=== PATIENT | male | born 1995 | race Caucasian/White ===

== ENCOUNTER 2017-07-01 14:40 | Emergency (ER) | payer OTHER ==
[2017-07-01 14:48] VITALS: BP 142/86; PULSE 92; TEMP 98; BMI 35.2
[2017-07-01] MEDS ORDERED: KETOROLAC TROMETHAMINE 60 MG/2 ML VIAL IM ONE (16:23)
--- NOTE | 2017-07-01 16:25 | PDOC ---
History of Present Illness - History of Present Illness Initial Comments: 07/01/17 16:58 The patient is a 21 year old male with a history of back pain, high cholesterol , presents to the emergency department with a complaint of neck and lower back pain since yesterday. Patient had fallen down stairs at home. He states he fell down about [address]. He slide forward while leaning back. Denies loss of consciousness, nausea or vomiting. Patient was previously evaluated at [facility] where he had a CT of his said. Patient reports the report was negative. He reports the pain is worse by the upper lumbar lower thoracic region and spans across the back. Patient also has pain in his left sided neck. Both his back pain and neck pains are provoked with movement. Pain does not radiate into the buttock or legs or arms. He has used Naprosyn with some relief of symptoms. Patient reports some lightheadedness. Denies tinnitus. Denies midline spinal tenderness or midline neck or lumbar tenderness or any saddle anesthesia. Denies urinary or bowel incontinence. Patient denies headache, change in vision or level of alertness. <Ian Amaro - Last Filed: 07/01/17 18:14> <Tatiana Del Toro - Last Filed: 07/01/17 19:09> - General Chief Complaint: Pain Stated Complaint: PAIN Time Seen by Provider: 07/01/17 15:59 Past History <Ian Amaro - Last Filed: 07/01/17 18:14> - Past Medical History Hypercholesterolemia: Yes - Surgical History Appendectomy: Yes - Psycho/Social/Smoking Cessation Hx Suicidal Ideation: No Smoking History: Never smoked Information on smoking cessation initiated: No <Tatiana Del Toro - Last Filed: 07/01/17 19:09> - Past Medical History Allergies/Adverse Reactions: Allergies Allergy/AdvReac Type Severity Reaction Status Date / Time No Known Allergies Allergy Verified 07/01/17 14:48 Home Medications: Ambulatory Orders Oxycodone HCl/Acetaminophen [Percocet 5-325 mg Tablet] 1 tab PO Q6H PRN #9 tablet MDD 3 07/01/17 Review of Systems - Review of Systems Able to Perform ROS?: Yes Constitutional: No: Symptoms Reported HEENTM: No: Symptoms Reported Respiratory: No: Symptoms reported Cardiac (ROS): No: Symptoms Reported ABD/GI: No: Symptoms Reported : No: Symptoms Reported Musculoskeletal: Yes: Symptoms Reported, See HPI, Back Pain (upper lumbar and lower thoracic paraspinal region. ), Neck Pain (left sided ) Neurological: No: Symptoms reported All Other Systems: Reviewed and Negative <Ian Amaro - Last Filed: 07/01/17 18:14> *Physical Exam - Vital Signs Last Vital Signs Temp Pulse Resp BP Pulse Ox 98 F 92 H 18 142/86 98 07/01/17 14:43 07/01/17 14:43 07/01/17 14:43 07/01/17 14:43 07/01/17 14:43 - Physical Exam General Appearance: Yes: Appropriately Dressed. No: Apparent Distress HEENT: positive: EOMI, MARGA, Normal ENT Inspection Neck: positive: Tender (left sided ), Supple. negative: Trachea midline, Rigidity, Tender midline Respiratory/Chest: positive: Lungs Clear, Normal Breath Sounds. negative: Respiratory Distress Cardiovascular: positive: Regular Rhythm, Regular Rate Gastrointestinal/Abdominal: positive: Soft. negative: Tender Musculoskeletal: positive: Other (lower thoracic upper lumbar paraspinal tenderness). negative: Vertebral Tenderness Extremity: positive: Normal Inspection Integumentary: positive: Normal Color, Dry, Warm Neurologic: positive: supervisor microfilm duplicating unit II-XII NML intact, Fully Oriented, Alert, Normal Mood/ Affect, Normal Response, Motor Strength 5/5 <Ian Amaro - Last Filed: 07/01/17 18:14> - Vital Signs Last Vital Signs Temp Pulse Resp BP Pulse Ox 98 F 92 H 18 142/86 98 07/01/17 14:43 07/01/17 14:43 07/01/17 14:43 07/01/17 14:43 07/01/17 14:43 - Physical Exam Deep Tendon Reflexes: Ankle (L): 4+, Ankle (R): 4+, Knee (L): 4+, Knee (R): 4+ <Tatiana Del Toro - Last Filed: 07/01/17 19:09> ED Treatment Course - Medications Given in the ED: ED Medications Discontinued Medications Generic Name Dose Route Start Last Admin Trade Name Freq PRN Reason Stop Dose Admin Ketorolac Tromethamine 60 mg 07/01/17 16:23 07/01/17 16:29 Toradol Injection - IM 07/01/17 16:24 60 mg NOW ONE Administration <Ian Amaro - Last Filed: 07/01/17 18:14> - RADIOLOGY Radiology Studies Ordered: Category Date Time Status SHOULDER-LEFT [RAD] Stat Radiology 07/01/17 16:24 Ordered <Tatiana Del Toro - Last Filed: 07/01/17 19:09> Medical Decision Making - Medical Decision Making 07/01/17 17:35 The patient is a 21 year old male with a history of back pain, high cholesterol , presents to the emergency department with a complaint of neck and lower back pain since yesterday. Patient had fallen down stairs at home. He states he fell down about [address]. He slide forward while leaning back. Denies loss of consciousness, nausea or vomiting. Patient was previously evaluated at [facility] where he had a CT of his said. Patient reports the report was negative. He reports the pain is worse by the upper lumbar lower thoracic region and spans across the back. Patient also has pain in his left sided neck. Both his back pain and neck pains are provoked with movement. Pain does not radiate into the buttock or legs or arms. He has used Naprosyn with some relief of symptoms. Patient reports some lightheadedness. Denies tinnitus. Denies midline spinal tenderness or midline neck or lumbar tenderness or any saddle anesthesia. Denies urinary or bowel incontinence. Patient denies headache, change in vision or level of alertness. FALL R/O LEFT SHOULDER JOSE ABNORMALITY R/O THORACIC, LUMBAR/SACRAL SPINE JOSE ABNORMALITY left lateral neck/shoulder pain MS pain thoracic/upper lumbar pain PLAN: TORADOL 60 MG IM XRAY LEFT SHOULDER negative gross abnormality XRAY THORACIC SPINE negative gross abnormality XRAY LUMBAR/SACRAL SPINE reversal of normal lordotic curve percocet 5mg/325 mg po every 8 hr prn severe pain # 9 tabs FOLLOW UP WITH ORTHOPEDIST SOON POSSIBLE 07/01/17 18:31 07/01/17 18:40 07/01/17 19:08 <Tatiana Del Toro - Last Filed: 07/01/17 19:09> *DC/Admit/Observation/Transfer - Attestations Scribe Attestion: 07/01/17 17:00 Documentation prepared by Ian Amaro, acting as medical secretary receptionist for Tatiana Del Toro NP <Ian Amaro - Last Filed: 07/01/17 18:14> - Attestations Scribe Attestion: 07/01/17 19:08 Clinical scribe Ian Santoyo prepared portion of this medical chart under my direction, chart was reviewed for accuracy and was deemed to be accurate <Katey,Kim - Last Filed: 07/01/17 19:09> Diagnosis at time of Disposition: Fall (on) (from) other stairs and steps, initial encounter Thoracic back pain Qualifiers: Chronicity: acute Back pain laterality: bilateral Qualified Code(s): M54.6 - Pain in thoracic spine Lumbar back pain Qualifiers: Chronicity: acute Back pain laterality: bilateral Sciatica presence: without sciatica Qualified Code(s): M54.5 - Low back pain Neck muscle strain Qualifiers: Encounter type: initial encounter Qualified Code(s): S16.1XXA - Strain of muscle, fascia and tendon at neck level, initial encounter - Discharge Dispostion Disposition: HOME Condition at time of disposition: Stable - Prescriptions Prescriptions: Oxycodone HCl/Acetaminophen [Percocet 5-325 mg Tablet] 1 tab PO Q6H PRN #9 tablet MDD 3 PRN Reason: Severe Pain - Referrals Referrals: Aries Veliz MD [Staff Physician] - Jose Metzger MD [Staff Physician] - - Patient Instructions Additional Instructions: Avoid any strenuous activities or exercise Follow-up with orthopedist for further evaluation Return to emergency room if symptoms worsen increased pain or numbness of legs or arms Patient voiced understanding of discharge instructions and all questions were answered - Post Discharge Activity Work/School Note: Back to Work
[2017-07-01] MEDS ORDERED: KETOROLAC TROMETHAMINE 60 MG/2 ML VIAL ONE (16:26)
== END 2017-07-01 18:46 | disposition home or self-care (01) ==
LOC: JERFT 14:40
DX: S16.1XXA Strain of muscle, fascia and tendon at neck level, initial encounter (principal); W10.8XXA Fall (on) (from) other stairs and steps, initial encounter; Y93.89 Activity, other specified; Y92.038 Other place in apartment as the place of occurrence of the external cause; Y99.8 Other external cause status
CPT/HCPCS: 72070-TC; 72100-TC; 73030-TC-LT; 99281-25

== ENCOUNTER 2017-10-22 20:08 | Emergency (ER) | payer SELFPAY ==
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
[2017-10-22 20:16] VITALS: BP 150/76; PULSE 100; TEMP 98; BMI 37.3
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
[2017-10-22] MEDS ORDERED: KETOROLAC TROMETHAMINE 30 MG/1 ML VIAL IM ONE (21:36)
[2017-10-22] MEDS ORDERED: KETOROLAC TROMETHAMINE 30 MG/1 ML VIAL ONE (21:44)
[2017-10-22 21:57] LABS: URINE APPEARANCE SLCLOUDY; URINE BILIRUBIN NEGATIVE (NEGATIVE); URINE BLOOD NEGATIVE (NEGATIVE); URINE COLOR LTYELLOW; URINE GLUCOSE (UA) 2+ (NEGATIVE); URINE KETONE NEGATIVE (NEGATIVE); URINE LEUK ESTERASE TRACE (NEGATIVE); URINE NITRITE NEGATIVE (NEGATIVE); URINE PROTEIN NEGATIVE (NEGATIVE); URINE UROBILINOGEN NEGATIVE mg/dL (0.2-1.0)
[2017-10-22 23:23] LABS: URINE BACTERIA RARE /hpf (NONE SEEN); URINE MUCUS RARE; URINE RBC 1 /hpf (0-3); URINE WBC 12 /hpf (3-5)
[2017-10-23 10:06] LABS: URINE LEUK ESTERASE TRACE (NEGATIVE)
== END 2017-10-22 22:25 | disposition home or self-care (01) ==
LOC: JERFT 20:08
PROC: 3E0233Z Introduction of Anti-inflammatory into Muscle, Percutaneous Approach (ICD-10-PCS; principal; 2017-10-22)
DX: M79.1 Myalgia (principal); V43.52XA Car driver injured in collision with other type car in traffic accident, initial encounter; Y93.89 Activity, other specified; Y92.410 Unspecified street and highway as the place of occurrence of the external cause
CPT/HCPCS: 81003; 81015; 99281-25

== ENCOUNTER 2023-01-24 11:45 | Observation (INO) | payer OTHER ==
[2023-01-24] MEDS ORDERED: KETOROLAC TROMETHAMINE 15 MG/ML VIAL IVPUSH ONE (13:36)
[2023-01-24] MEDS ORDERED: SODIUM CHLORIDE 0.9% 500 ML INFUS.BAG IV ONE (13:36)
[2023-01-24] MEDS ORDERED: ONDANSETRON 4 MG/2 ML VIAL IVPUSH ONE (13:37)
[2023-01-24] MEDS ORDERED: KETOROLAC TROMETHAMINE 30 MG/1 ML VIAL ONE (13:55)
[2023-01-24] MEDS ORDERED: ONDANSETRON 4 MG/2 ML VIAL ONE (13:55)
[2023-01-24 16:43] LABS: BASO % 0.3 % (0-2.0); EOS % 0.7 % (0-4.5); HEMATOCRIT 51.2 % (35.4-49); MCH 28.3 pg (25.7-33.7); MCHC 33.1 g/dl (32.0-35.9); MEAN CELL VOLUME 85.5 fl (80-96); MEAN PLT VOLUME 8.7 fl (7.5-11.1); MONO % 4.2 % (3.8-10.2); NEUT % 86.8 % (42.8-82.8); PLATELET COUNT 315 10^3/uL (134-434); RBC 5.99 M/mm3 (4.00-5.60); RDW 14.7 % (11.9-15.9); URINE APPEARANCE CLEAR; URINE BILIRUBIN NEGATIVE (NEGATIVE); URINE COLOR YELLOW; URINE GLUCOSE (UA) NEGATIVE (NEGATIVE); URINE KETONE TRACE (NEGATIVE); URINE LEUK ESTERASE NEGATIVE (NEGATIVE); URINE NITRITE NEGATIVE (NEGATIVE); URINE PROTEIN TRACE (NEGATIVE); URINE UROBILINOGEN 0.2 mg/dL (0.2-1.0); WHITE BLOOD COUNT 11.3 K/mm3 (4.0-10.0)
[2023-01-24 17:24] LABS: CALCIUM 9.3 mg/dL (8.5-10.1)
[2023-01-24 17:25] LABS: ALBUMIN 4.1 g/dl (3.4-5.0); BLOOD UREA NITROGEN 14.2 mg/dL (7-18)
[2023-01-24 17:28] LABS: CREATININE 0.9 mg/dL (0.55-1.3)
[2023-01-24 17:29] LABS: BILIRUBIN,TOTAL 0.9 mg/dL (0.2-1); TOT PROT 8.1 g/dl (6.4-8.2)
[2023-01-24] MEDS ORDERED: SODIUM CHLORIDE 1,000 ML IV STA (18:12)
[2023-01-24] MEDS ORDERED: ACETAMINOPHEN 1000 MG/100 ML BAG IVPB ONE (21:39)
[2023-01-24] MEDS ORDERED: INSULIN (NOVOLOG) ASPART 100 UNITS/ML 10ML VIAL ONE (22:17)
[2023-01-24] MEDS: INSULIN SLIDING SCALE (NOVOLOG) 1 VIAL SQ SCH (22:31)
[2023-01-24] MEDS ORDERED: ONDANSETRON 4 MG/2 ML VIAL IVPUSH PRN (22:58)
[2023-01-25] MEDS: SODIUM CHLORIDE 1,000 ML IV SCH ×3 (00:30→12:37)
[2023-01-25 03:06] VITALS: BMI 26.5
[2023-01-25] MEDS: INSULIN SLIDING SCALE (NOVOLOG) 1 VIAL SQ SCH ×3 (06:50→17:06)
[2023-01-25 09:13] LABS: HEMATOCRIT 45.1 % (35.4-49); HEMOGLOBIN 15.3 GM/dL (11.7-16.9); MCH 28.9 pg (25.7-33.7); MCHC 33.9 g/dl (32.0-35.9); MEAN CELL VOLUME 85.4 fl (80-96); MEAN PLT VOLUME 8.6 fl (7.5-11.1); PLATELET COUNT 280 10^3/uL (134-434); RBC 5.28 M/mm3 (4.00-5.60); RDW 14.3 % (11.9-15.9); WHITE BLOOD COUNT 3.6 K/mm3 (4.0-10.0)
[2023-01-25 09:32] LABS: CALCIUM 8.5 mg/dL (8.5-10.1)
[2023-01-25 09:33] LABS: ALBUMIN 3.3 g/dl (3.4-5.0); BLOOD UREA NITROGEN 9.2 mg/dL (7-18); MAGNESIUM 2.1 mg/dL (1.8-2.4)
[2023-01-25 09:35] LABS: CREATININE 0.8 mg/dL (0.55-1.3)
[2023-01-25 09:37] LABS: BILIRUBIN,TOTAL 1.1 mg/dL (0.2-1); TOT PROT 6.6 g/dl (6.4-8.2)
[2023-01-25] MEDS ORDERED: ENOXAPARIN NA (PORCINE) 40 MG/0.4 ML DISP.SYRIN SQ SCH (10:00)
[2023-01-25 14:51] VITALS: RESP 20
[2023-01-25 19:31] VITALS: BP 130/74; PULSE 71; TEMP 97.4
== END 2023-01-25 21:07 | disposition left against medical advice (07) ==
LOC: JER 11:45 → INTOOBSV 19:44 → JERBED 19:44 → J8W 21:20
PROVIDERS: ADMIT Internal Medicine; ATTEND Nurse Practitioner Acute Care
DX: I47.20 Ventricular tachycardia, unspecified (principal); I48.91 Unspecified atrial fibrillation; I42.9 Cardiomyopathy, unspecified; Z95.0 Presence of cardiac pacemaker; R00.2 Palpitations; R77.8 Other specified abnormalities of plasma proteins; I10 Essential (primary) hypertension; E78.5 Hyperlipidemia, unspecified; Z79.01 Long term (current) use of anticoagulants
CPT/HCPCS: 0241U-QW; 36415; 74176-TC; 80053; 81003; 82962; 83690; 83735; 84100; 85025; 85027; 87086; 93005; 93010; 99285-25; G0378

== ENCOUNTER 2024-05-01 10:53 | Emergency (ER) | payer OTHER ==
[2024-05-01 11:30] VITALS: BP 126/70; PULSE 92; RESP 18; TEMP 99.5; BMI 46.0
[2024-05-01] MEDS ORDERED: CYCLOBENZAPRINE HCL 5 MG TABLET ONE (11:49)
[2024-05-01] MEDS ORDERED: KETOROLAC TROMETHAMINE 30 MG/1 ML VIAL ONE (11:49)
[2024-05-01] MEDS ORDERED: LIDOCAINE 5% TOPICAL PATCH ONE (11:53)
[2024-05-01] MEDS: KETOROLAC TROMETHAMINE 30 MG/1 ML VIAL IM ONE (12:02)
[2024-05-01] MEDS: LIDOCAINE 5% TOPICAL PATCH TP ONE (12:02)
[2024-05-01] MEDS ORDERED: LIDOCAINE PATCH REMOVAL MC ONE (22:00)
[2024-05-02] MEDS ORDERED: CYCLOBENZAPRINE HCL 5 MG TABLET PO ONE (11:40)
== END 2024-05-01 13:39 | disposition home or self-care (01) ==
LOC: JERFT 10:53
PROC: 3E0233Z Introduction of Anti-inflammatory into Muscle, Percutaneous Approach (ICD-10-PCS; principal; 2024-05-01)
DX: M54.41 Lumbago with sciatica, right side (principal); M54.2 Cervicalgia; M54.6 Pain in thoracic spine
CPT/HCPCS: 99284-25

== ENCOUNTER 2024-06-18 03:19 | Emergency (ER) | payer OTHER ==
[2024-06-18 03:25] VITALS: BP 130/78; RESP 16; TEMP 98.6; BMI 34.9
[2024-06-18] MEDS ORDERED: ACETAMINOPHEN INJECTION 100 ML IVPB ONE (04:19)
[2024-06-18] MEDS: ACETAMINOPHEN 1000 MG/100 ML BAG IVPB ONE (04:35)
[2024-06-18 04:41] LABS: BASO % 0.9 % (0-2.0); HEMOGLOBIN 14.7 GM/dL (11.7-16.9); LYMPH % 39.7 % (8-40); MCH 28.9 pg (25.7-33.7); MCHC 34.1 g/dl (32.0-35.9); MEAN CELL VOLUME 84.7 fl (80-96); MEAN PLT VOLUME 7.9 fl (7.5-11.1); MONO % 6.8 % (3.8-10.2); NEUT % 51.6 % (42.8-82.8); PLATELET COUNT 271 10^3/uL (134-434); RBC 5.08 M/mm3 (4.00-5.60); RDW 13.6 % (11.9-15.9); WHITE BLOOD COUNT 5.7 K/mm3 (4.0-10.0)
[2024-06-18 04:56] LABS: INR 1.02 (0.83-1.09); PROTHROMBIN TIME (PATIENT) 11.5 SEC (9.7-13.0)
[2024-06-18 04:59] LABS: ACTIVATED PTT 33.3 SECONDS (25.2-36.5)
[2024-06-18 05:04] LABS: CALCIUM 8.5 mg/dL (8.5-10.1)
[2024-06-18 05:05] LABS: ALBUMIN 3.4 g/dl (3.4-5.0); BLOOD UREA NITROGEN 7.3 mg/dL (7-18)
[2024-06-18 05:08] LABS: CREATININE 0.9 mg/dL (0.55-1.3)
[2024-06-18 05:10] LABS: BILIRUBIN,TOTAL 0.4 mg/dL (0.2-1); TOT PROT 6.5 g/dl (6.4-8.2)
[2024-06-18 05:58] LABS: HIV INTERPRETATION NEGATIVE (NEGATIVE)
[2024-06-18 06:48] VITALS: PULSE 92
== END 2024-06-18 07:05 | disposition home or self-care (01) ==
LOC: JER 03:19
PROC: 3E033NZ Introduction of Analgesics, Hypnotics, Sedatives into Peripheral Vein, Percutaneous Approach (ICD-10-PCS; principal; 2024-06-18)
DX: R10.12 Left upper quadrant pain (principal)
CPT/HCPCS: 36415; 74177-TC; 80053; 85025; 85610; 85730; 86803; 86850; 86900; 86901; 87389; 93005; 93010; 99285-25; J0131; Q9967